=== PATIENT | male | born 2000 | race Caucasian/White ===

== ENCOUNTER 2023-10-15 01:11 | Emergency (ER) | payer BC ==
[2023-10-15 01:29] VITALS: PULSE 96
== END 2023-10-15 02:00 | disposition left against medical advice (07) ==
LOC: ER 01:11
DX: T14.8XXA Other injury of unspecified body region, initial encounter (principal); Z53.21 Procedure and treatment not carried out due to patient leaving prior to being seen by health care provider; X58.XXXA Exposure to other specified factors, initial encounter; Y93.89 Activity, other specified; Y92.89 Other specified places as the place of occurrence of the external cause; Y99.8 Other external cause status